=== PATIENT | male | born 2000 ===

== ENCOUNTER 2020-05-23 15:25 | Emergency (ER) | payer SELFPAY ==
[~2020-05-23] VITALS: Ht 190.5 cm; Wt 82.6 kg
[2020-05-23 15:28] VITALS: BP 152/84
[2020-05-23] MEDS ORDERED: FLUORESCEIN OPHTHALMIC 1 MG STRIP ONE (16:08)
[2020-05-23] MEDS ORDERED: PROPARACAINE OPHTH 0.5%, 15ML ONE (16:08)
== END 2020-05-23 16:18 | disposition left against medical advice (07) ==
LOC: ED 16:15
DX: H57.13 Ocular pain, bilateral (principal); Z53.21 Procedure and treatment not carried out due to patient leaving prior to being seen by health care provider